=== PATIENT | male | born 1955 | race Caucasian/White ===

== ENCOUNTER 2018-06-06 18:08 | Emergency (ER) | payer OTHER ==
[~2018-06-06] VITALS: Ht 170.2 cm; Wt 80.0 kg
[2018-06-06 18:14] VITALS: Ht 170.2 cm; Wt 80.0 kg
[2018-06-06] MEDS ORDERED: IBUPROFEN 600 MG TAB PO STA (19:24)
[2018-06-06 20:30] VITALS: BP 124/68; PULSE 91; RESP 20
[2018-06-06] MEDS ORDERED: OSEL75CA23 PO (20:35)
[2018-06-06] MEDS ORDERED: IBUP-1542 PO (20:37)
--- NOTE | 2018-06-06 23:24 | ERD ---
ER Documentation Chief Complaint Chief Complaint pt bib family with c/o fever , aches and pain, sore throat x 3 days HPI 63-year-old male with no past medical history presenting with complaints of fever, body aches, sore throat, and cough for the past 2 days. He has been taking cold medicine from [place] but no other medications. He denies any chest pain or shortness of breath. No nausea, vomiting, diarrhea. No neck pain or stiffness. ROS All systems reviewed and are negative except as per history of present illness. Medications Home Meds Active Scripts Ibuprofen* (Motrin*) 600 Mg Tab, 600 MG PO Q6H PRN for PAIN AND OR ELEVATED TEMP, #30 TAB Prov:SREE PETERSEN MD 06/06/18 Oseltamivir Phosphate* (Tamiflu*) 75 Mg Capsule, 75 MG PO BID for 5 Days, CAP Prov:SREE PETERSEN MD 06/06/18 Allergies Allergies: Coded Allergies: No Known Allergy (Unverified , 06/06/18) PMhx/Soc Medical and Surgical Hx: pt denies Medical Hx, pt denies Surgical Hx History of Surgery: No Anesthesia Reaction: No Hx Neurological Disorder: No Hx Respiratory Disorders: No Hx Cardiac Disorders: No Hx Psychiatric Problems: No Hx Miscellaneous Medical Probl: No Hx Alcohol Use: No Hx Substance Use: No Hx Tobacco Use: No Smoking Status: Never smoker FmHx Family History: No diabetes Physical Exam Vitals Vital Signs Date Temp Pulse Resp B/P (MAP) Pulse Ox O2 O2 Flow FiO2 Time Delivery Rate 06/06/18 99.7 91 20 124/68 97 Room Air 20:30 (86) 06/06/18 103.0 19:49 06/06/18 103.0 97 21 145/79 97 Room Air 19:00 (101) 06/06/18 103.5 99 20 146/79 94 18:14 (101) Physical Exam Const: No acute distress, nontoxic Head: Atraumatic Eyes: Normal Conjunctiva ENT: Normal External Ears, Nose and Mouth. Posterior oropharynx clear without exudate Neck: Full range of motion. No meningismus. Resp: Clear to auscultation bilaterally Cardio: Tachycardic with regular rhythm, no murmurs Abd: Soft, non tender, non distended. Normal bowel sounds Skin: No petechiae or rashes Back: No midline or flank tenderness Ext: No cyanosis, or edema Neur: Awake and alert Psych: Normal Mood and Affect Results 24 hrs Current Medications Medications Dose Sig/Markel Start Time Status Last (Trade) Ordered Route PRN Stop Time Admin Dose Reason Admin Ibuprofen 600 mg ONCE STAT 06/06/18 DC 06/06/18 (Motrin) PO 19:24 19:49 06/06/18 19:27 Procedures/MDM Chest x-ray was reviewed and did not show any evidence of acute abnormality Rapid influenza was positive [facility] Patient is presenting with flulike symptoms with fever and tachycardia. However I have a low suspicion for serious bacterial infection. He was flu positive. Given his age, I did recommend treatment with Tamiflu. Return precautions were discussed. Patient was treated with ibuprofen here with improvement of his symptoms. Prescription for Tamiflu and ibuprofen given. Patient's blood pressure was elevated (>120/80) but appears stable without evidence of hypertension emergency or urgency. The patient was counseled about the risks of hypertension and urged to pursue outpatient monitoring and therapy within a week with their primary care physician. Departure Diagnosis: Primary Impression: Influenza Condition: Stable Patient Instructions: Influenza (Adult) Referrals: DOCTOR,NOT ON STAFF (PCP) Additional Instructions: Regresa a la maribeth de emergencias si alma delia sintomas estan empeorando. SREE PETERSEN MD Jun 06, 2018 23:24
== END 2018-06-06 20:45 | disposition home or self-care (01) ==
LOC: E/R 18:08
DX: J10.1 Influenza due to other identified influenza virus with other respiratory manifestations (principal)
CPT/HCPCS: 71045; 87400